=== PATIENT | female | born 1985 | race Caucasian/White ===

== ENCOUNTER 2021-12-11 11:37 | Outpatient (CLI) | payer OTHER, SELFPAY ==
[2021-12-11 12:44] LABS: SARS-CoV-2 Ag Positive (Negative)
== END 2021-12-11 11:38 | disposition home or self-care (01) ==
LOC: CHSLAB 11:52
PROVIDERS: PCP Family Medicine; Visit Provider Physician Assistant
DX: U07.1 COVID-19 (principal); J02.9 Acute pharyngitis, unspecified
CPT/HCPCS: 87426; C9803